=== PATIENT | male | born 1955 | race Hispanic/Latino ===

== ENCOUNTER 2020-10-27 22:33 | Inpatient (IN) | payer OTHER ==
[2020-10-28] MEDS ORDERED: MORPHINE 4 MG/ML SYR ONE ×3 (00:39→10:52)
[2020-10-28] MEDS ORDERED: NA CHLORIDE 0.9% 1,000 ML ONE (00:39)
[2020-10-28] MEDS ORDERED: ONDANSETRON 4 MG/2 ML VIAL ONE ×2 (00:39→02:07)
[2020-10-28 01:04] LABS: Absolute Lymphocytes (CBC) 1.3 K/uL (0.7-4.9); Basophils % 0.4 % (0-1.3); Hematocrit 50.2 % (39.6-49.0); Lymphocytes % 11.5 % (15.3-44.8); RBC Red Blood Cell Count 5.82 M/uL (4.33-5.43)
[2020-10-28 01:05] LABS: Protime INR 0.95
[2020-10-28 01:19] LABS: ALT/SGPT 19 U/L (12-78); AST/SGOT 17 U/L (15-37); Albumin 3.2 g/dL (3.4-5.0); Alkaline Phosphatase 66 U/L (45-117); BUN Blood Urea Nitrogen 32 mg/dL (7-18); Bicarbonate 24 mmol/L (21-32); Bilirubin Direct 0.1 mg/dL (0-0.2); Bilirubin Total 0.4 mg/dL (0.2-1.0); Glucose Level 102 mg/dL (74-106); Lipase 99 U/L (73-393); Magnesium 1.7 mg/dL (1.8-2.4); NT PRO-BNP 197 pg/mL (<125); Potassium 4.1 mmol/L (3.5-5.1); Protein, Total 7.2 g/dL (6.4-8.2); Sodium Level 140 mmol/L (136-145); Troponin (Emerg Dept Use Only) < 0.02 ng/mL (0.0-0.045)
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
--- NOTE | 2020-10-28 01:43 | EDPHYS ---
[facility] Name: Anival Rubio Age: 65 yrs Sex: Male : 1955 Arrival Date: 10/27/2020 Time: 22:54 Bed 16 Private MD: BRITTANI Physician Phill Marsh HPI: 10/27 23:42 This 65 yrs old Male presents to ER via Wheelchair with complaints of Fall flaca Injury. 23:42 Details of fall: The patient fell from a height, down approximately 4 stairs. Onset: flaca The symptoms/episode began/occurred today. Associated injuries: The patient sustained upper back injury, injury to the low back, injury to the chest, injury to the abdomen, specifically the epigastric area, right upper quadrant and left upper quadrant. Severity of symptoms: At their worst the symptoms were moderate, in the emergency department the symptoms are unchanged. The patient has not experienced similar symptoms in the past. Historical: - Allergies: 23:08 No Known Allergies; bb - Home Meds: 23:08 basclar [Active]; L methyl B6 B12 [Active]; hydrochlorothiazide 12.5 mg Oral cap 1 cap bb once daily [Active]; amlodipine 5 mg tab 1 tab once daily [Active]; lisinopril 20 mg Oral tab 1 tab once daily [Active]; atorvastatin 40 mg oral tab 1 tab once daily [Active]; aspirin 81 mg Oral chew 1 tab once daily [Active]; glipizide 5 mg Oral tab 1 tab 2 times per day [Active]; metformin 1,000 mg Oral TG24 1 tab 2 times per day [Active]; - PMHx: 23:08 Diabetes - NIDDM; Hypertension; Hyperlipidemia; bb - PSHx: 23:08 Right knee surgery; Abscess removed from back; bb - Immunization history: Last tetanus immunization: - up to date. - Social history:: Smoking status: Patient reports the use of cigarette tobacco products, smokes two packs cigarettes per day. ROS: 23:44 Constitutional: Negative for fever, chills, and weight loss, Eyes: Negative for injury, flaca pain, redness, and discharge, ENT: Negative for injury, pain, and discharge, Neck: Negative for injury, pain, and swelling, Cardiovascular: Negative for chest pain, palpitations, and edema, Respiratory: Negative for shortness of breath, cough, wheezing, and pleuritic chest pain, : Negative for injury, bleeding, discharge, and swelling, MS/Extremity: Negative for injury and deformity, Skin: Negative for injury, rash, and discoloration, Neuro: Negative for headache, weakness, numbness, tingling, and seizure, Psych: Negative for depression, anxiety, suicide ideation, homicidal ideation, and hallucinations, Allergy/Immunology: Negative for hives, rash, and allergies, Endocrine: Negative for neck swelling, polydipsia, polyuria, polyphagia, and marked weight changes, Hematologic/Lymphatic: Negative for swollen nodes, abnormal bleeding, and unusual bruising. 23:44 Respiratory: Positive for shortness of breath, at rest. 23:44 Abdomen/GI: Positive for abdominal pain, of the anterior aspect of right lateral abdomen, posterior aspect of right lateral abdomen, right upper quadrant and left upper quadrant. 23:44 Back: Positive for decreased range of motion, pain at rest, pain with movement, flank pain, on the right. Exam: 23:44 Constitutional: This is a well developed, well nourished patient who is awake, alert, flaca and in no acute distress. Head/Face: Normocephalic, atraumatic. Eyes: Pupils equal round and reactive to light, extra-ocular motions intact. Lids and lashes normal. Conjunctiva and sclera are non-icteric and not injected. Cornea within normal limits. Periorbital areas with no swelling, redness, or edema. ENT: Nares patent. No nasal discharge, no septal abnormalities noted. Tympanic membranes are normal and external auditory canals are clear. Oropharynx with no redness, swelling, or masses, exudates, or evidence of obstruction, uvula midline. Mucous membranes moist. Neck: Trachea midline, no thyromegaly or masses palpated, and no cervical lymphadenopathy. Supple, full range of motion without nuchal rigidity, or vertebral point tenderness. No Meningismus. Chest/axilla: Normal chest wall appearance and motion. Nontender with no deformity. No lesions are appreciated. Cardiovascular: Regular rate and rhythm with a normal S1 and S2. No gallops, murmurs, or rubs. Normal PMI, no JVD. No pulse deficits. Respiratory: Lungs have equal breath sounds bilaterally, clear to auscultation and percussion. No rales, rhonchi or wheezes noted. No increased work of breathing, no retractions or nasal flaring. Male : Normal genitalia with no discharge or lesions. Skin: Warm, dry with normal turgor. Normal color with no rashes, no lesions, and no evidence of cellulitis. MS/ Extremity: Pulses equal, no cyanosis. Neurovascular intact. Full, normal range of motion. Neuro: Awake and alert, GCS 15, oriented to person, place, time, and situation. Cranial nerves II-XII grossly intact. Motor strength 5/5 in all extremities. Sensory grossly intact. Cerebellar exam normal. Normal gait. Psych: Awake, alert, with orientation to person, place and time. Behavior, mood, and affect are within normal limits. 23:44 Respiratory: the patient does not display signs of respiratory distress, Respirations: normal, no acute changes, Breath sounds: decreased breath sounds, that are mild, are heard in the left upper lobe, left lower lobe, left posterior upper lobe and left posterior lower lobe. 23:44 Abdomen/GI: Inspection: distension, Bowel sounds: normal, Palpation: nontender, Liver: no appreciated palpable abnormalities, Hernia: not appreciated. 23:44 Back: pain, that is mild, that is moderate, ROM is painful, normal spinal alignment noted, CVA tenderness, that is mild, is noted on the right, is noted on the left, vertebral tenderness, is not appreciated, muscle spasm, is not present. 10/28 05:13 ECG was reviewed by the Attending Physician. flaca Vital Signs: 10/27 22:58 BP 117 / 62; Pulse 73; Resp 16 S; Temp 98.4(O); Pulse Ox 94% on R/A; Weight 108.86 kg bb (R); Height 5 ft. 11 in. (180.34 cm) (R); Pain 8/10; 23:12 BP 146 / 82; Pulse 88; Resp 12 S; Pulse Ox 93% on R/A; bb 10/28 00:30 BP 129 / 67; Pulse 84; Resp 12 S; Pulse Ox 92% on R/A; bb 03:37 BP 116 / 54; Pulse 83; Resp 12 S; Pulse Ox 92% on 3 lpm NC; bb 10/27 22:58 Body Mass Index 33.47 (108.86 kg, 180.34 cm) [place] Coma Score: 10/27 22:58 Eye Response: spontaneous(4). Verbal Response: oriented(5). Motor Response: obeys bb commands(6). Total: 15. 23:12 Eye Response: spontaneous(4). Verbal Response: oriented(5). Motor Response: obeys bb commands(6). Total: 15. Trauma Score (Adult): 22:58 Eye Response: spontaneous(1); Verbal Response: oriented(1); Motor Response: obeys bb commands(2); Systolic BP: > 89 mm Hg(4); Respiratory Rate: 10 to 29 per min(4); [place] Score: 15; Trauma Score: 12 MDM: 23:14 Patient medically screened. flaca 23:46 Differential diagnosis: closed head injury, contusion, fracture, multiple trauma, flaca sprain, strain. Differential diagnosis: non-specific abd pain, pancreatitis, urinary tract infection, Blunt Chest Trauma Chest Wall Contusion Chest Wall Injury Pleural Effusion Pneumothorax Pulmonary Contusion Rib Fracture. Data reviewed: vital signs, nurses notes, lab test result(s), EKG, radiologic studies, CT scan, plain films. 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 Test interpretation: by ED physician or midlevel provider: ECG, plain radiologic studies. Counseling: I had a detailed discussion with the patient and/or guardian regarding: the historical points, exam findings, and any diagnostic results supporting the discharge/admit diagnosis, lab results, radiology results. 10/27 23:42 Order name: Basic Metabolic Panel [facility] 10/27 23:42 Order name: CBC with Diff [facility] 10/27 23:42 Order name: LFT's [facility] 10/27 23:42 Order name: Magnesium [facility] 10/27 23:42 Order name: NT PRO-BNP [facility] 10/27 23:42 Order name: PT-INR [facility] 10/27 23:42 Order name: Troponin (emerg Dept Use Only) [facility] 10/27 23:42 Order name: Urine Culture [facility] 10/27 23:42 Order name: Type And Screen [facility] 10/27 23:42 Order name: Lipase; Complete Time: 01:31 [facility] 10/27 23:42 Order name: Basic Metabolic Panel; Complete Time: 01:31 [facility] 10/27 23:42 Order name: CBC with Automated Diff; Complete Time: 01:31 [facility] 10/27 23:42 Order name: Liver (Hepatic) Function; Complete Time: 01:31 [facility] 10/27 23:42 Order name: XRAY Chest (1 view) [facility] 10/27 23:42 Order name: CT Traumagram (Head C Spine CAP W Con) [facility] 10/27 23:42 Order name: Magnesium; Complete Time: 01:31 [facility] 10/27 23:42 Order name: NT PRO-BNP; Complete Time: 01:31 [facility] 10/27 23:42 Order name: Protime (+INR); Complete Time: 01:31 [facility] 10/27 23:42 Order name: Troponin (Emerg Dept Use Only); Complete Time: 01:31 [facility] 10/28 01:23 Order name: INCENTIVE SPIROMETRY [facility] 10/28 01:53 Order name: CREATININE WHOLE BLOOD; Complete Time: 02:21 [facility] 10/28 03:59 Order name: SARS-COV-2 RT PCR [facility] 10/28 06:04 Order name: Comprehensive Metabolic Panel [facility] 10/28 06:04 Order name: Magnesium [facility] 10/28 07:56 Order name: ABO/RH no charge [facility] 10/28 08:23 Order name: Glucose, Ancillary Testing [facility] 10/28 11:56 Order name: Glucose, Ancillary Testing [facility] 10/27 23:42 Order name: EKG; Complete Time: 23:43 [facility] 10/27 23:42 Order name: IV Saline Lock; Complete Time: 00:14 [facility] 10/27 23:42 Order name: Labs collected and sent; Complete Time: 00:14 [facility] 10/27 23:42 Order name: O2 Per Protocol; Complete Time: 00:43 [facility] 10/27 23:42 Order name: O2 Sat Monitoring; Complete Time: 00:43 [facility] 10/28 02:46 Order name: CONS Physician Consult [facility] EC/07 05:13 Rate is 86 beats/min. Rhythm is regular. QRS [place] is Normal. [place] interval is normal. QRS [place]aca interval is normal. QT interval is normal. No Q waves. T waves are Normal. No ST changes noted. Clinical impression: Normal ECG and No evidence of ischemia. Interpreted by me. Reviewed by me. Administered Medications: 00:30 Drug: NS 0.9% 1000 ml Route: IV; Rate: 1 bolus; Site: right antecubital; bb 01:30 Follow up: IV Status: Completed infusion; IV Intake: 1000ml bb 00:30 Drug: morphine 4 mg {Note: RASS 0.} Route: IVP; Site: right antecubital; bb 01:00 Follow up: Response: Pain is unchanged, physician notified; RASS: Alert and Calm (0) bb 00:30 Drug: Zofran (Ondansetron) 4 mg Route: IVP; Site: right antecubital; bb 01:00 Follow up: Response: No adverse reaction bb 01:55 Drug: Zofran (Ondansetron) 4 mg Route: IVP; Site: right antecubital; bb 02:30 Follow up: Response: Nausea is decreased bb 02:42 Follow up: Response: No adverse reaction bb 02:00 Drug: Dilaudid (HYDROmorphone) 1 mg {Note: RASS 1.} Route: IVP; Site: right antecubital;bb 02:42 Follow up: Response: Pain is decreased; RASS: Drowsy (-1) bb 02:43 Drug: Magnesium Sulfate 1 grams Route: IVPB; Infused Over: 1 hrs; Site: right bb antecubital; 04:19 Follow up: Response: No adverse reaction; IV Status: Completed infusion 1 Disposition: 10/28/20 01:42 Hospitalization ordered by Jose Eduardo Joyner for Observation. Preliminary diagnosis are Type 2 diabetes mellitus, Essential (primary) hypertension, Fall (on) (from) other stairs and steps, Fracture of first lumbar vertebra - mildly displaced left transverse process fracture, Multiple fractures of ribs, left side - 8-12 nondisplaced rib fractures, Solitary pulmonary nodule - 4mm right upper lobe. - Bed requested for Telemetry/MedSurg (observation). - Status is Observation. iw - Condition is Fair. - Problem is new. - Symptoms are unchanged. Signatures: Dispatcher [employer] [facility]RI Marisela Cali RN RN dw Anderson, Corey, MD MD cha Ballard, Brenda, RN RN bb Williams, Irene, RN RN iw Garcia, Cindy, RN RN cg Calhoun, Lisa lc1 Corrections: (The following items were deleted from the chart) 02:22 10/27 23:43 CORONAVIRUS+MR.LAB.BRZ ordered. EDRI EDRI 10/28 02:48 01:42 Hospitalization Ordered by Jose Eduardo Joyner MD for Observation. Preliminary cg diagnosis is Type 2 diabetes mellitus; Essential (primary) hypertension; Fall (on) (from) other stairs and steps; Fracture of first lumbar vertebra - mildly displaced left transverse process fracture; Multiple fractures of ribs, left side - 8-12 nondisplaced rib fractures; Solitary pulmonary nodule - 4mm right upper lobe. Bed requested for Telemetry/MedSurg (observation). Status is Observation. Condition is Fair. Problem is new. Symptoms are unchanged. flaca 11:55 02:48 10/28/2020 01:42 Hospitalization Ordered by Jose Eduardo Joyner MD for Observation. dw Preliminary diagnosis is Type 2 diabetes mellitus; Essential (primary) hypertension; Fall (on) (from) other stairs and steps; Fracture of first lumbar vertebra - mildly displaced left transverse process fracture; Multiple fractures of ribs, left side - 8-12 nondisplaced rib fractures; Solitary pulmonary nodule - 4mm right upper lobe. Bed requested for [facility] ER HOLD. Status is Observation. Condition is Fair. Problem is new. Symptoms are unchanged. cg 12:29 11:55 10/28/2020 01:42 Hospitalization Ordered by Jose Eduardo Joyner MD for Observation. iw Preliminary diagnosis is Type 2 diabetes mellitus; Essential (primary) hypertension; Fall (on) (from) other stairs and steps; Fracture of first lumbar vertebra - mildly displaced left transverse process fracture; Multiple fractures of ribs, left side - 8-12 nondisplaced rib fractures; Solitary pulmonary nodule - 4mm right upper lobe. Bed requested for Telemetry/MedSurg (observation). Status is Observation. Condition is Fair. Problem is new. Symptoms are unchanged. dw
[2020-10-28] MEDS ORDERED: HYDROMORPHONE HCL 1 MG/ML INJ ONE (02:07)
[2020-10-28] MEDS ORDERED: MAGNESIUM SULFATE 1 gm IVPB 1 GM/100 ML BAG IV ONE ×2 (02:50→03:01)
[2020-10-28] MEDS ORDERED: ACETAMINOPHEN 500 MG TAB PO PRN (03:17)
[2020-10-28] MEDS ORDERED: ONDANSETRON 4 MG/2 ML VIAL IV PRN (03:17)
[2020-10-28 04:29] VITALS: BMI 33.5
--- NOTE | 2020-10-28 04:42 | P.HP ---
Certification for Inpatient Patient admitted to: Observation With expected LOS: <2 Midnights Patient will require the following post-hospital care: None Practitioner: I am a practitioner with admitting privileges, knowledge of patient current condition, hospital course, and medical plan of care. Services: Services provided to patient in accordance with Admission requirements found in Title 42 Section 412.3 of the Code of Federal Regulations <Benjamin Galaviz - Last Filed: 10/28/20 04:36> Patient History Date of Service: 10/28/20 Primary Care Provider: Mi Reason for admission: fall, multiple rib fractures History of Present Illness: Mr. Rubio is a 65yo male with T2DM and HTN here today after slipping off the frame of his truck while trying to get on a trailer this afternoon, sustaining 5 nondisplaced rib fractures. He did not hit his head. Left sided pain was initially a 10/10, now controlled to a 6/10, exacerbating by moving and talking. Improved with pain medications and a hot shower, no relief with tylenol. He reports nausea and vomiting. He denies chest pain, palpitations, SOB, cough, lightheadedness, dizziness, numbness and tingling. He smokes 2ppd. CXR shows multiple fractures, no pneumothorax. - Past Medical/Surgical History Has patient received pneumonia vaccine in the past: Yes Diabetic: Yes -: DM -: HTN -: Right knee surgery -: abscess on back - Family History Family History: Reviewed- Non-Contributory (patient is adopted) - Social History Smoking Status: Heavy Tobacco smoker (>10 cigarettes/day) Counseled patient to stop smoking for: less than 10 minutes Smoking therapy provided: Yes Patient receptive to therapy: No Alcohol use: No CD- Drugs: No Caffeine use: Yes Place of Residence: Home <GuillaumeBenjamin S - Last Filed: 10/28/20 04:36> Date of Service: 10/28/20 <Jose Eduardo Joyner - Last Filed: 11/04/20 22:40> Allergies No Known Allergies Allergy (Verified 02/06/14 22:40) Home Medications: Amlodipine [Norvasc*] 5 mg PO DAILY 10/28/20 Aspirin [Aspirin EC 81 MG] 81 mg PO DAILY 10/28/20 Atorvastatin Calcium [Lipitor] 40 mg PO DAILY 10/28/20 Glipizide [Glipizide ER] 5 mg PO BID 10/28/20 Insulin Glargine,Hum.rec.anlog [Hafsaaglmariza Busch U-100] See Protocol SQ PRN 10/28/20 Lisinopril [Zestril] 20 mg PO DAILY 10/28/20 Metformin HCl [Glucophage] 1,000 mg PO BID 10/28/20 hydroCHLOROthiazide [Hydrochlorothiazide*] 12.5 mg PO DAILY 10/28/20 Atorvastatin Calcium [Lipitor] 40 mg PO DAILY #30 tab 10/29/20 Hydrocodone 10/APAP 325 [[place] 10/325] 1 tab PO Q6H PRN #30 tab 10/29/20 Lidocaine 4% Patch [Lidoderm 5% Patch*] 1 patch TD DAILY #30 patch 10/29/20 Review of Systems General: Unremarkable Eyes: Unremarkable ENT: Unremarkable Respiratory: Unremarkable Cardiovascular: Unremarkable Gastrointestinal: Nausea, Vomiting, As per HPI Genitourinary: Unremarkable Musculoskeletal: Back Pain, As per HPI Integumentary: Unremarkable Neurological: Unremarkable Lymphatics: Unremarkable <Benjamin Galaviz - Last Filed: 10/28/20 04:36> Physical Examination - Vital Signs Blood Pressure: 120/42 Pulse: 86 Respirations: 16 Pulse Ox (%): 90 - Physical Exam General: Alert, In no apparent distress, Oriented x3, Cooperative HEENT: Atraumatic, Normocephalic, PERRLA, Mucous membr. moist/pink, EOMI, Sclerae nonicteric Neck: Supple, 2+ carotid pulse no bruit, JVD not distended, No Thyromegaly, No LAD Respiratory: Clear to auscultation bilaterally, Normal air movement Cardiovascular: No edema, Normal pulses, Regular rate/rhythm, Normal S1 S2, No gallops, No rubs, No murmurs Capillary refill: <2 Seconds Gastrointestinal: Normal bowel sounds, Soft and benign, Non-distended, No ascites, No tenderness, No masses, No rebound, No guarding Musculoskeletal: No clubbing, No swelling, No contractures, No erythema, No warmth, Tenderness Integumentary: No rashes, No breakdown, No significant lesion, No tenderness/swelling, No erythema, No warmth, No cyanosis Neurological: Normal speech, Normal strength at 5/5 x4 extr, Normal tone, Sensation intact, Cranial nerves 3-12 intact, Normal affect Lymphatics: No axilla or inguinal lymphadenopathy - Studies Laboratory Data (last 24 hrs) 10/27/20 23:57: PT 10.9, INR 0.95 10/27/20 23:57: WBC 11.20 H, Hgb 16.7, Hct 50.2 H, Plt Count 232 10/27/20 23:57: Sodium 140, Potassium 4.1, BUN 32 H, Creatinine 1.06, Glucose 102, Magnesium 1.7 L, Total Bilirubin 0.4, AST 17, ALT 19, Alkaline Phosphatase 66, Lipase 99 <Benjamin Galaviz - Last Filed: 10/28/20 04:36> Assessment and Plan - Problems (Diagnosis) (1) Ribs, multiple fractures Status: Acute Qualifiers: Encounter type: initial encounter Fracture type: closed Laterality: left Qualified Code(s): S22.42XA - Multiple fractures of ribs, left side, initial encounter for closed fracture (2) Diabetes mellitus Status: Acute Qualifiers: Diabetes mellitus type: type 2 Diabetes mellitus fpc insulin use: with fpc use Diabetes mellitus complication status: without complication Qualified Code(s): E11.9 - Type 2 diabetes mellitus without complications; Z79.4 - FPC (current) use of insulin (3) Hypertension Status: Chronic Qualifiers: Hypertension type: essential hypertension Qualified Code(s): I10 - Essential (primary) hypertension - Plan Naveed consulted NPO sliding scale insulin and q6hr BG checks reconcile and continue home BP medications morphine IV for pain management nicotine patch for tobacco use dependence magnesium replacement protocol Discharge Plan: Home Plan to discharge in: 24 Hours - Advance Directives Does patient have a Living Will: No Does patient have a Durable POA for Healthcare: No - Code Status/Comfort Care Code Status Assessed: Yes (full code) Critical Care: No Time Spent Managing Pts Care (In Minutes): 70 <Benjamin Galaviz - Last Filed: 10/28/20 04:36> Date of Service: 10/28/20 Chart reviewed agree with plan of care as mentioned above. Anticipate discharge in the morning if symptoms improve. <Jose Eduardo Joyner - Last Filed: 11/04/20 22:40>
[2020-10-28 05:52] LABS: ALT/SGPT 17 U/L (12-78); AST/SGOT 16 U/L (15-37); Albumin 2.8 g/dL (3.4-5.0); Alkaline Phosphatase 57 U/L (45-117); BUN Blood Urea Nitrogen 28 mg/dL (7-18); Bicarbonate 28 mmol/L (21-32); Bilirubin Total 0.5 mg/dL (0.2-1.0); Glucose Level 120 mg/dL (74-106); Magnesium 2.1 mg/dL (1.8-2.4); Potassium 4.4 mmol/L (3.5-5.1); Protein, Total 6.3 g/dL (6.4-8.2); Sodium Level 140 mmol/L (136-145)
[2020-10-28] MEDS: MORPHINE 4 MG/ML SYR IV PRN ×4 (06:48→22:45)
[2020-10-28] MEDS: INSULIN -REGULAR HUMAN 50 UNIT/0.5 ML ML SQ SCH ×4 (07:30→20:37)
--- NOTE | 2020-10-28 07:43 | RAD REPORT ---
EXAM DESCRIPTION: Meli Single View10/28/2020 12:59 am CLINICAL HISTORY: Chest pain COMPARISON: none FINDINGS: A few areas of subsegmental atelectasis are present within the right lung base. Patient's known posterior left rib fracture not clearly seen on this exam. Elevation of the right hemidiaphragm. Heart is normal size
[2020-10-28] MEDS: NICOTINE 14 MG/PAT TD SCH ×2 (09:00→18:21)
--- NOTE | 2020-10-28 12:57 | RAD REPORT ---
EXAM DESCRIPTION: CT - Head C Spine Ralph Atkinson - 10/28/2020 6:57 am CLINICAL HISTORY: PAIN. TECHNIQUE: Axial, coronal, and sagittal images through the brain were performed in the absence of in travenous contrast. CT of the cervical spine was performed without contrast. Axial, coronal, and sagittal reconstructions were created and sent to PACS. CT of the chest, abdomen, and pelvis was performed following intravenous administration of contrast. Axial, coronal, and sagittal reconstructions were created and sent to PACS. These exams were performed according to our departmental dose-optimization program which includes use of Automated Exposure Control, adjustment of the mA and/or kV according to patient size and/or use o f iterative reconstruction technique. COMPARISON: None. FINDINGS: CT Head: The brain parenchyma appears unremarkable. There is no intra-axial or extra-axial bleed seen. There i s no mass or mass effect. The ventricles are normal in size shape and configuration. The orbital cont ents appear unremarkable. The visualized paranasal sinuses and mastoid air cells are patent. No fracture is identified. CT cervical spine: No acute osseous abnormality identified. Vertebral body height and alignment are maintained. No atlan todental interval widening. Atlantoaxial alignment is maintained. Small posterior disc osteophyte com plex these throughout the cervical spine without thickened central canal stenosis. No neuroforaminal narrowing. Paraspinal soft tissues: Mild atherosclerosis. Chest: Lungs and pleura: No pulmonary consolidation. No pleural effusion. No pneumothorax. Mild paraseptal e mphysema in the lung apices. Mild is pulmonary intralobular septal thickening. Elevation of the right hemidiaphragm with mild atelectasis in the right lung base. Lateral right upper lobe pulmonary nodul e measures 0.2 x 0.6 cm. Mediastinum and neck: No mediastinal lymphadenopathy identified by CT size criteria. Unremarkable parveen earance of the thyroid gland. Cardiac: No cardiomegaly or pericardial effusion. No thoracic aortic aneurysm or dissection. Mild ath erosclerosis. Abdomen/pelvis: Mildly motion degraded exam. Suboptimal evaluation due to streak artifact from patient arm positionin g. Hepatobiliary: No concerning hepatic lesion identified. The hepatic and portal veins are patent. The gallbladder is unremarkable. No biliary ductal dilatation. Pancreas: Unremarkable. Spleen: Unremarkable. Gastrointestinal: No evidence of bowel obstruction or perienteric inflammation. The appendix is jayashree l. Adrenals: No abnormality identified in either adrenal gland. Renal: N few small bilateral renal hypodensities, likely cysts o concerning parenchymal abnormality i n either kidney. No hydronephrosis or urolithiasis. Bladder/Reproductive: Unremarkable appearance of the urinary bladder by CT technique. Mild prostatome luis angel. Vascular/Lymphatics: No lymphadenopathy identified by CT size criteria. Abdominal aorta is normal in caliber. Mild atherosclerosis. Musculoskeletal: Acute nondisplaced rib fractures along the posterior lateral aspect of the left eigh th through 12th ribs. Acute mildly displaced transverse process fracture on the left at L1. Vertebral body height and alignment are maintained. No concerning osseous lesion identified. Tiny fat-containi ng left-sided inguinal hernia. Fluid / peritoneum: No significant free fluid. No free intraperitoneal air identified. IMPRESSION: 1. No acute intracranial abnormality identified. 2. Acute nondisplaced rib fractures along the posterior lateral aspect of the left eighth through 1 2th ribs. No pneumothorax. 3. Acute mildly displaced transverse process fracture on the left at L1. Vertebral body height and alignment are maintained. 4. No additional acute traumatic abnormality identified in the chest, abdomen, or pelvis, within th e limitation of mild motion degradation. 5. Incidentally noted 4 mm right upper lobe pulmonary nodule. A non-contrast Chest CT at 12 months is optional. If performed and the nodule is stable at 12 months, no further follow-up is recommended. These guidelines do not apply to immunocompromised patients and patients with cancer. Follow up in p atients with significant comorbidities as clinically warranted (Reference: Radiology. 2017; 284(1):22 8-43). Electronically signed by: Saira Ramirez MD 10/28/2020 1:04 AM CDT Due to temporary technical issues with the PACS/Fluency reporting system, reports are being signed by the in house radiologist without review as a courtesy to ensure prompt reporting. The interpreting r adiologist is fully responsible for the content of the report.
[2020-10-28] MEDS ORDERED: NA CHLORIDE 0.9% 50 ML ONE (14:31)
[2020-10-28] MEDS ORDERED: CEFTRIAXONE/SWI 1gm 1 GM/10 ML SYR ONE (14:31)
[2020-10-28] MEDS: METFORMIN HCL 500 MG TAB PO SCH (16:42)
[2020-10-28] MEDS: ASPIRIN EC 81 MG TAB PO SCH (16:43)
--- NOTE | 2020-10-28 16:54 | CON ---
Date of Consultation: 10/28/2020 Reason For Consultation: Multiple rib fractures. History Of Present Illness: The patient is a 65-year-old gentleman, who presented to the emergency r oom last night after sustaining a fall while working on a trailer left side of his chest. He is complaining of pain in that area, but no difficulty breathing right now. No shortness of juana th. No neck pain. No loss of consciousness. No abdominal pain and no other pain, except for the le ft chest and there is pain with deep inspiration. On IV pain medicines, the pain is controlled. No sore throat, runny nose, cough, headaches, or dizziness. No fever or chills. Review of Systems: Otherwise unremarkable. Past Medical History: Significant for type 2 diabetes, hypertension. Past Surgical History: Right knee surgery and I and D of an abscess. Allergies: NO ALLERGIES. Social History: The patient does smoke, has been counseled. Denies drinking alcohol. Physical Examination: Vital Signs: His vitals are stable. He is afebrile. General: He is awake, alert, and oriented x3. Head and Neck: No neck pain posteriorly. There is some musculoskeletal tenderness on the left side of the neck. No JVD. Trachea is midline. No neck masses. Chest: Diminished breath sounds in the bases. Heart: S1 and S2. Abdomen: Soft, nondistended, nontender. Positive bowel sounds. Pelvic: Stable. Extremity: Neurovascularly intact. Neuro: Nonfocal. Laboratory Data: White count is 11.2 with a slight left shift. INR is 0.95. Chemistry reviewed. G lucose is 143. Magnesium was slightly low at 1.7, being replaced. CT of the head, neck, chest, abdo men and pelvis reviewed, essentially the findings are left posterolateral rib fractures from 8 to 12 and a transverse process fracture on the left side of L1 nondisplaced. Assessment: Status fall with multiple rib fractures and L1 fracture. Recommendations: At this time, parenteral pain management and transition to an oral pain management as tolerated, incentive spirometry, oxygen as needed, physical therapy for ambulation. Okay to resum e regular diet and once pain is controlled, the patient can be discharged. Plan of care discussed in detail with the patient and family and Dr. Joyner. /MODL Voice ID: [id number] Report ID: [id number]
[2020-10-28] MEDS: GLIPIZIDE S.A. 5 MG TAB PO SCH (20:36)
[2020-10-28] MEDS: MUCINEX DM 12HR.SR TAB PO SCH (21:38)
[2020-10-28 23:24] LABS: Urine Appearance CLEAR (Clear); Urine Blood 3+ (Negative); Urine Color DK YELLOW (Yellow); Urine Glucose 2+ (Negative); Urine Protein 3+ (Negative); Urine Specific Gravity >=1.030 (1.005-1.030)
[2020-10-28 23:29] LABS: Urine Bilirubin NEGATIVE (Negative); Urine Microscopic Reflex ORDER UMIC
[2020-10-29 01:02] LABS: Urine Bacteria 20-50 /HPF (NONE SEEN); Urine RBC <5 /HPF (NONE SEEN); Urine Urothelial Cells <5 /HPF (NONE SEEN)
[2020-10-29] MEDS: MORPHINE 4 MG/ML SYR IV PRN ×2 (05:44→12:18)
[2020-10-29] MEDS: INSULIN -REGULAR HUMAN 50 UNIT/0.5 ML ML SQ SCH ×2 (07:30→11:30)
[2020-10-29] MEDS: METFORMIN HCL 500 MG TAB PO SCH ×2 (08:00→08:26)
[2020-10-29] MEDS: MUCINEX DM 12HR.SR TAB PO SCH (08:25)
[2020-10-29] MEDS: GLIPIZIDE S.A. 5 MG TAB PO SCH (08:25)
[2020-10-29] MEDS: ASPIRIN EC 81 MG TAB PO SCH (08:26)
[2020-10-29] MEDS: NICOTINE 14 MG/PAT TD SCH (08:26)
--- NOTE | 2020-10-29 08:54 | EKG ---
Test Date: 2020-10-28 Test Time: 04:51:39 Engineering Associate: CATHRYN MEASUREMENT RESULTS: Intervals: Rate: 86 [place]: 148 QRSD: 110 QT: 370 QTc: 442 [place]: P: 49 [place]: 148 QRS: -34 T: 57 INTERPRETIVE STATEMENTS: Normal sinus rhythm Left axis deviation Abnormal ECG No previous ECG available for comparison Electronically Signed On 10-29-20 08:50:32 CDT by Logan Bajwa
[2020-10-29] MEDS ORDERED: AMLODIPINE 5 MG TAB PO SCH (09:00)
[2020-10-29] MEDS ORDERED: lisinopriL 20 MG TAB PO SCH (09:00)
[2020-10-29] MEDS ORDERED: ATORVASTATIN 40 MG TAB PO SCH (09:00)
[2020-10-29] MEDS ORDERED: hydroCHLOROthiazide 12.5 MG CAP PO SCH (09:00)
[2020-10-29 11:15] VITALS: O2SAT 93
[2020-10-29 14:52] VITALS: BP 127/67; TEMP 98.4
--- NOTE | 2020-11-04 22:47 | P.DS ---
Discharge Date: 10/29/20 Primary Care Provider: Mi Disposition: ROUTINE DISCHARGE Discharge Condition: GOOD Reason for Admission: fall, multiple rib fractures Consultations: General surgeon Brief History of Present Illness: Patient is a 65-year-old gentleman who came into the hospital with rib fractures after falling. Patient was having severe pain and there was concerned that he may have developed a pneumonic process. Decision was made to admit him to the hospital for further evaluation. Hospital Course: Patient has done well during hospital stay. Patient's pain is controlled. Patient is clinically doing much better. At this time, patient is stable for discharge home. Outpatient follow with general surgery in 1-2 weeks. Vital Signs/Physical Exam: Temp Pulse Resp BP Pulse Ox 98.4 F 75 18 127/67 93 10/29/20 12:00 10/29/20 12:00 10/29/20 12:18 10/29/20 12:00 10/29/20 12:18 General: Alert, In no apparent distress, Oriented x3 Laboratory Data at Discharge: WBC 11.20 K/uL (4.3-10.9) H 10/27/20 23:57 Hgb 16.7 g/dL (13.6-17.9) 10/27/20 23:57 Hct 50.2 % (39.6-49.0) H 10/27/20 23:57 Plt Count 232 K/uL (152-406) 10/27/20 23:57 PT 10.9 SECONDS (9.5-12.5) 10/27/20 23:57 INR 0.95 10/27/20 23:57 Sodium 140 mmol/L (136-145) 10/28/20 05:07 Potassium 4.4 mmol/L (3.5-5.1) 10/28/20 05:07 BUN 28 mg/dL (7-18) H 10/28/20 05:07 Creatinine 0.81 mg/dL (0.55-1.3) 10/28/20 05:07 Glucose 120 mg/dL (74-106) H 10/28/20 05:07 Magnesium 2.1 mg/dL (1.8-2.4) 10/28/20 05:07 Total Bilirubin 0.5 mg/dL (0.2-1.0) 10/28/20 05:07 AST 16 U/L (15-37) 10/28/20 05:07 ALT 17 U/L (12-78) 10/28/20 05:07 Alkaline Phosphatase 57 U/L (45-117) 10/28/20 05:07 Lipase 99 U/L (73-393) 10/27/20 23:57 Home Medications: Amlodipine [Norvasc*] 5 mg PO DAILY 10/28/20 Aspirin [Aspirin EC 81 MG] 81 mg PO DAILY 10/28/20 Atorvastatin Calcium [Lipitor] 40 mg PO DAILY 10/28/20 Glipizide [Glipizide ER] 5 mg PO BID 10/28/20 Insulin Glargine,Hum.rec.anlog [Basaglar Melbaikpen U-100] See Protocol SQ PRN 10/28/20 Lisinopril [Zestril] 20 mg PO DAILY 10/28/20 Metformin HCl [Glucophage] 1,000 mg PO BID 10/28/20 hydroCHLOROthiazide [Hydrochlorothiazide*] 12.5 mg PO DAILY 10/28/20 Atorvastatin Calcium [Lipitor] 40 mg PO DAILY #30 tab 10/29/20 Hydrocodone 10/APAP 325 [[place] 10/325] 1 tab PO Q6H PRN #30 tab 10/29/20 Lidocaine 4% Patch [Lidoderm 5% Patch*] 1 patch TD DAILY #30 patch 10/29/20 New Medications: Lidocaine 4% Patch [Lidoderm 5% Patch*] 1 patch TD DAILY #30 patch Atorvastatin Calcium [Lipitor] 40 mg PO DAILY #30 tab Hydrocodone 10/APAP 325 [[place] 10/325] 1 tab PO Q6H PRN #30 tab PRN Reason: Pain Physician Discharge Instructions: OK TO DC IV AND DC HOME FOLLOW-UP WITH PRIMARY CARE PROVIDER IN 1-2 WEEKS FOLLOW-UP WITH CARDIOLOGY IN 1-2 WEEKS RETURN TO THE ER IF symptoms worsens CALL or TEXT DR. BROWNING AT [phone] IF ANY QUESTIONS REGARDING HOSPITAL STAY. PLEASE CALL THE FLOOR AT [phone] IF ANY MEDICATION OR NURSING QUESTIONS. Diet: AHA Activity: Fall precautions Followup: OOT,OOT [Primary Care Provider] - Time spent managing pt's care (in minutes): 35
== END 2020-10-29 13:28 | disposition home or self-care (01) | DRG 185 ==
LOC: ER 22:33 → ERHOLD 10-28 02:45 → 2ND 10-28 12:15
PROVIDERS: ADMIT Hospitalist; ATTEND Hospitalist
DX: S22.42XA Multiple fractures of ribs, left side, initial encounter for closed fracture (principal); E11.9 Type 2 diabetes mellitus without complications; I10 Essential (primary) hypertension; E78.5 Hyperlipidemia, unspecified; F17.210 Nicotine dependence, cigarettes, uncomplicated; W10.9XXA Fall (on) (from) unspecified stairs and steps, initial encounter; Z79.899 Other long term (current) drug therapy; Z79.4 Long term (current) use of insulin; Z79.82 Long term (current) use of aspirin; Z20.822 Contact with and (suspected) exposure to COVID-19
CPT/HCPCS: 36415; 70450; 71045; 71260; 72125; 74177; 80048; 80053; 80076; 81003; 81015; 82565; 82947; 83690; 83735; 83880; 84484; 85025; 85610; 86850; 86900; 86901; 87086; 87088; 93005; 94760; 96361; 96365; 96366; 96375; 97116; 97161; 99285; G0390; J0696; J1170; J2405; J3475; J7030; Q9967; U0003